=== PATIENT | male | born 1990 | race Hispanic/Latino ===

== ENCOUNTER 2023-08-21 21:46 | Emergency (ER) | payer OTHER ==
[~2023-08-21] VITALS: Ht 170.2 cm; Wt 69.9 kg
[2023-08-21 22:13] VITALS: RESP 18
== END 2023-08-21 23:33 | disposition home or self-care (01) ==
LOC: EDH 21:46
DX: M79.603 Pain in arm, unspecified (principal); M79.89 Other specified soft tissue disorders; I10 Essential (primary) hypertension
CPT/HCPCS: 99281